=== PATIENT | female | born 1955 ===

== ENCOUNTER 2016-12-30 09:32 | Day surgery (SDC) | payer MEDICAID ==
[2016-12-30 11:06] VITALS: BMI 23.7
[2016-12-30 11:43] VITALS: RESP 19; TEMP 96.9; O2SAT 100
[2016-12-30] MEDS ORDERED: Propofol 10 mg/ml Inj (20 ML) ONE (12:45)
--- NOTE | 2016-12-30 12:46 | CP.SDSHP ---
Same Day Surgery H & P - History Proposed Procedure: colonoscopy Pre-Op Diagnosis: h/o colon cancer - Allergies Allergies: Allergies No Known Allergies Allergy (Verified 12/30/16 11:05) - Physical Exam General Appearance: NAD Vital Signs: Vital Signs 12/30/16 12/30/16 11:17 11:50 Temperature 96.9 F L Pulse Rate 57 L 57 L Respiratory 19 Rate Blood Pressure 105/60 O2 Sat by Pulse 100 Oximetry Mental Status: Alert & Oriented x3 Neuro: WNL Heart: WNL Lungs: WNL GI: WNL - {Optional Preform as Required} Abdomen: WNL - Impression Pt. Evaluated Today:Candidate for Anesthesia & Procedure: Yes - Date & Time Date: 12/30/16 Time: 12:46 Short Stay Discharge - Short Stay Discharge Admitting Diagnosis/Reason for Visit: H/O/ COLON CANCER Disposition: HOME/ ROUTINE
[2016-12-30] MEDS ORDERED: Lactated Ringer's 1,000 ML IV SCH (13:15)
[2016-12-30 14:34] VITALS: BP 118/75; PULSE 69
== END 2016-12-30 14:30 | disposition home or self-care (01) ==
LOC: C.ENDO 09:32
PROVIDERS: ATTEND Internal Medicine Gastroenterology
DX: N82.3 Fistula of vagina to large intestine (principal); K62.89 Other specified diseases of anus and rectum; Z85.038 Personal history of other malignant neoplasm of large intestine